=== PATIENT | female | born 1990 | race Caucasian/White ===

== ENCOUNTER → 2016-07-09 | Outpatient (REF) | payer BC | END | disposition home or self-care (01) | LOC: M SFHCPLAZ 15:35 | PROVIDERS: ATTEND Physician Assistant | DX: J02.9 Acute pharyngitis, unspecified (principal) ==

== ENCOUNTER 2016-07-17 10:55 | Emergency (ER) | payer OTHER, BC ==
[2016-07-17] MEDS ORDERED: IBUPROFEN 800 MG TAB As Ordered ONE (14:14)
[2016-07-17] MEDS ORDERED: CEPHALEXIN 250 MG CAP As Ordered ONE (14:14)
--- NOTE | 2016-07-17 14:41 | REP ---
RIGHT HAND SERIES, COMPLETE: 07/17/2016. Clinical history trauma, evaluate for foreign body. Four views were provided. I do not see a radiopaque foreign body embedded in the soft tissues or bones of the right hand and wrist. Distal radius and ulna, carpal bones, metacarpals and phalanges are without fracture, focal lesion or bony erosive change. Joint spaces were preserved and unremarkable. Impression: 1. No radiopaque foreign body or focal bone lesion about the right hand and wrist. Signed by Mauricio Spears MD 07/17/2016 05:59 P
[2016-07-17] MEDS ORDERED: LIDOCAINE 1% MDV 20ML VIAL As Ordered ONE (14:54)
--- NOTE | 2016-07-17 15:51 | EDDOCDS ---
Nurse's Notes [facility] Name: Sindy Arthur Age: 26 yrs Sex: Female : 1990 Arrival Date: 07/17/2016 Time: 10:55 Bed I6 Private MD: Santi Samson M Diagnosis: Laceration without foreign body of right hand;Contusion of right hand Presentation: 07/17 11:05 Presenting complaint: Patient states: "took a nail into hand while pulling a crate down hs1 and crate slammed down on hand" Hand is wrapped at present with gauze - from safety personnel at work. Adult Sepsis Screening: The patient does not have new or worsening altered mentation. Patient's respiratory rate is less than 22. Systolic blood pressure is greater than 100. Patient has a qSOFA score of 0- Negative Sepsis Screen. Suicide/Homicide risk assessment- the patient denies having any suicidal and/or homicidal ideations and does not present with any other emotional, behavioral or mental health complaints. 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 Transition of care: patient was not received from another setting of care. 11:05 Acuity: CECILIA Level 3 hs1 11:05 Method Of Arrival: Walkin/Carried/Asstd hs1 Triage Assessment: 11:07 General: Appears in no apparent distress, Behavior is appropriate for age, cooperative. hs1 Pain: Location: right hand Pain currently is 4 out of 10 on a pain scale. Quality of pain is described as burning, throbbing. HIV screening NA for this visit Offered previously. Respiratory: No deficits noted. Musculoskeletal: Range of motion intact in all extremities. Injury Description: Puncture sustained to dorsum of right hand is was sustained less than 30 minutes ago. 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 none - PMHx: none; - PSHx: Tonsillectomy; Adenoidectomy; Bunion Surgery; - Social history: Smoking status: Patient uses tobacco products, heavy tobacco smoker. No barriers to communication noted, The patient speaks fluent Tajik, Speaks appropriately for age. - Family history: Not pertinent. - : The pt / caregiver states he / she is not on anticoagulants. Home medication list is obtained from the patient. - Exposure Risk Screening:: None identified. Screenin:24 Screening information is obtained from the patient. Fall risk: No risks identified. mcp Assistance ADL's: requires no assistance with activities of daily living. Abuse/DV Screen: The patient / caregiver reports he/she is: not in a situation that causes fear, pain or injury. Nutritional screening: No deficits noted. Advance Directives: There is no active DNR order. home support is adequate. Assessment: 13:39 Reassessment: PATIENT STATES TETANUS IS UP TO DATE. hs1 14:23 General: Appears uncomfortable, Behavior is cooperative. Pain: Location: right hand mcp Pain currently is 5 out of 10 on a pain scale. Neurological: No deficits noted. Respiratory: Airway is patent Respiratory effort is even, unlabored. Derm: Skin is pink, warm & dry. Musculoskeletal: Circulation, motion, and sensation intact. Injury Description: Puncture sustained to dorsum of right hand is superficial. 15:44 General: Appears in no apparent distress, comfortable, Behavior is appropriate for age, kpj pleasant. Pain: Denies pain. Neurological: Level of Consciousness is awake, alert, Oriented to person, place, time. Respiratory: Airway is patent Respiratory effort is even, unlabored, Respiratory pattern is regular, symmetrical. Derm: Skin is pink, warm & dry. Musculoskeletal: Circulation, motion, and sensation intact Capillary refill < 3 seconds in right fingers Range of motion intact in all extremities. Swelling present in dorsum of right hand 3 sutures intact dorsum right hand, no active bleeding noted. slight swelling and redness around suture site. Vital Signs: 10:57 BP 139 / 70; Pulse 76; Resp 16; Temp 97.3(O); Pulse Ox 100% on R/A; Weight 90.72 kg elp (R); Height 5 ft. 7 in. (170.18 cm) (R); Pain 4/10; 15:44 BP 122 / 72; Pulse 84; Resp 16; Temp 98.3(O); Pulse Ox 100% on R/A; Pain 0/10; kpj 10:57 Body Mass Index 31.32 (90.72 kg, 170.18 cm) [facility] Vitals: 10:57 Log In Time: July 17, 2016 at 10:41. [facility] ED Course: 10:56 Patient visited by Chandni Hudson PCA. elp 10:56 Santi Samson is Private Physician. elp 10:56 Patient moved to Waiting elp 10:58 Patient visited by Chandni Hudson PCA. elp 10:58 Patient moved to Pre RCE elp 11:06 Triage Initiated hs1 12:28 [facility] Payment Agreement was scanned into [employer] and attached to record. jp5 12:45 Patient moved to Triage 2 cj 13:31 Madelaine Sweeney PA-C is PHCP. ef1 13:31 Chavez Pandya MD is Attending Physician. ef1 13:32 Patient visited by Madelaine Sweeney PA-C. ef1 14:13 Patient moved to I6 / hs1 14:17 Patient visited by Madelaine Sweeney PA-C. ef1 14:23 Wound care to puncture located on dorsum of right hand was cleaned with Hibiclens, mcp Patient tolerated well. 14:24 The patient / caregiver is instructed regarding the plan of care and ED course. Patient mcp has correct armband on for positive identification. Bed in low position. Call light in reach. 14:24 No IV's were initiated during this patient's visit. mcp 14:25 Patient visited by Doris Ramsey RN. mcp 14:52 Patient visited by Madelaine Sweeney PA-C. ef1 15:13 Santi Samson is Referral Physician. ef1 15:17 Hand, Complete Returned. EDMS 15:30 Assist provider with laceration repair using sutures, Laceration was <2.5 cm. with a kpj simple repair. Performed by Madelaine Sweeney PA-C Dressed with 4X4s, Kerlix, Neosporin and Patient tolerated well. 15:44 No apparent distress. kpj 15:44 Dressings: Kerlix X 1; 4X4s X 1; applied to dorsum of right hand. kpj Administered Medications: 14:22 Drug: Cephalexin 500 mg [cephalexin 250 mg capsule (2 caps)] Route: PO; mcp 14:22 Drug: Ibuprofen 800 mg [ibuprofen 800 mg tablet (1 tabs)] Route: PO; mcp 14:55 CANCELLED (Other Intervention Used): Lidocaine 20 mg/mL (2 %) 10 ml Infiltration once; mcp to bedside 15:30 Drug: Lidocaine 10 ml [lidocaine 10 mg/mL (1 %) injection solution (10 mL)] {Note: kpj given to Elmer VILLAREAL to administer.} Route: Infiltration; 15:43 Drug: Bacitracin 1 applic [bacitracin zinc 500 unit/gram topical ointment (1 applic)] [facility] Route: Topical; Site: affected area; Order Results: Radiology Order: Hand, Complete Test: Hand, Complete REASON FOR EXAMINATION: Foreign Body;Trauma; Right hand series, complete: 07/17/2016.; ; Clinical history trauma, evaluate for foreign body.; ; Four views were provided. I do not see a radiopaque foreign body embedded in the; soft tissues or bones of the right hand and wrist. Distal radius and ulna,; carpal bones, metacarpals and phalanges are without fracture, focal lesion or; bony erosive change. Joint spaces were preserved and unremarkable.; ; Impression:; 1. No radiopaque foreign body or focal bone lesion about the right hand and; wrist.; ; Unreviewed; Outcome: 15:13 Discharge ordered by Provider. ef1 15:49 Discharge Assessment: Patient awake, alert and oriented x 3. No cognitive and/or kpj functional deficits noted. Patient verbalized understanding of disposition instructions. patient administered narcotics - no. The following High Risk Discharge criteria are identified: None. Discharged to home ambulatory. Condition: stable. Discharge instructions given to patient, Instructed on discharge instructions, follow up and referral plans. medication usage, wound care, Demonstrated understanding of instructions, medications, Pt was receptive of discharge instructions/ teaching. Prescriptions given X 2, Work note provided to patient. No special radiology studies were completed. Property sent home with patient. 15:50 Patient left the ED. [facility] Signatures: Dispatcher [employer] EDSC Lashaun Griffith RN RN kpj Peters, Mary, RN RN mcp Feola, Erica, PA-C PAMateus ef1 Bernie Nova RN RN hs1 Coretta Razo RN RN [facility] Chandni Hudson PCA PCA elp Price, Jennalee jp5 Corrections: (The following items were deleted from the chart) 15:49 14:24 No procedures done that require assistance [facility] MTDD
--- NOTE | 2016-07-17 15:51 | EDDOCDS ---
Physician Documentation [facility] Name: Sindy Arthur Age: 26 yrs Sex: Female : 1990 Arrival Date: 07/17/2016 Time: 10:55 Bed I Private MD: Santi Samson M Disposition: 07/17/16 15:13 Discharged to Home/Self Care. Impression: Laceration without foreign body of right hand, Contusion of right hand. - Condition is Stable. - Discharge Instructions: Hand Contusion, Mgyx-ao-Lyel, Sutured Wound Care, [id number]. - Prescriptions for Keflex 500 mg Oral Capsule - take 1 capsule by ORAL route every 12 hours for 10 days; 20 capsule. Mobic 7.5 mg Oral Tablet - take 1 tablet by ORAL route once daily take with food; 20 tablet. - Work Release Form - 4 day, Medication Reconciliation, Local Pharmacy Hours form. - Follow up: Santi Samson; When: 1 - 2 days; Reason: Recheck today's complaints, Continuance of care. Follow up: Emergency Department; Reason: Worsening of conditions. - Problem is new. - Symptoms have improved. Historical: - Allergies: SHELLFISH; Topamaxnumbness of face and lips; - Home Meds: 1. none - PMHx: none; - PSHx: Tonsillectomy; Adenoidectomy; Bunion Surgery; - Social history: Smoking status: Patient uses tobacco products, heavy tobacco smoker. No barriers to communication noted, The patient speaks fluent Cymraes, Speaks appropriately for age. - Family history: Not pertinent. - : The pt / caregiver states he / she is not on anticoagulants. Home medication list is obtained from the patient. - Exposure Risk Screening:: None identified. 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 7 in. (170.18 cm) (R); Pain 4/10; 15:44 BP 122 / 72; Pulse 84; Resp 16; Temp 98.3(O); Pulse Ox 100% on R/A; Pain 0/10; kpj 10:57 Body Mass Index 31.32 (90.72 kg, 170.18 cm) elp Procedures: 14:27 Wound care to laceration located on right hand was cleaned with Hibiclens, irrigated ef1 with normal saline, Patient tolerated well. 15:10 Laceration repair:. ef1 Laceration: 15:10 Wound Repair of 1cm ( 0.4in ) full thickness laceration to right hand. Distal ef1 neuro/vascular/tendon intact. Anesthesia: Local anesthetic administered with 2 mls of 1% lidocaine. Wound prep: Simple cleansing with betadine by provider, Wound irrigation with saline by provider. Skin closed with 3 x 5-0 Nylon using Simple interrupted sutures. Dressed with Bacitracin, 4x4's. Patient tolerated well. MDM: 12:28 [facility] Payment Agreement was scanned into [employer] and attached to record. jp5 13:41 Cephalexin 500 mg PO once ordered. ef1 13:41 Ibuprofen 800 mg PO once ordered. ef1 13:41 Wound Care ordered. ef1 13:41 Hand, Complete Ordered. EDCO 13:50 Financial registration complete. [facility] 14:55 Lidocaine 10 mg/mL (1 %) 10 ml Infiltration once; to bedside ordered. [facility] 15:12 Bacitracin Ointment 500 unit/g 1 applic Topical in affected area once ordered. ef1 15:12 Dressing ordered. ef1 Administered Medications: 14:22 Drug: Cephalexin 500 mg [cephalexin 250 mg capsule (2 caps)] Route: PO; [facility] 14:22 Drug: Ibuprofen 800 mg [ibuprofen 800 mg tablet (1 tabs)] Route: PO; [facility] 14:55 CANCELLED (Other Intervention Used): Lidocaine 20 mg/mL (2 %) 10 ml Infiltration once; [facility] to bedside 15:30 Drug: Lidocaine 10 ml [lidocaine 10 mg/mL (1 %) injection solution (10 mL)] {Note: [facility] given to Elmer VILLAREAL to administer.} Route: Infiltration; 15:43 Drug: Bacitracin 1 applic [bacitracin zinc 500 unit/gram topical ointment (1 applic)] [facility] Route: Topical; Site: affected area; Signatures: Dispatcher [employer] EDCO Lashaun Griffith RN RN Doris Frazier RN RN mcp Feola, Erica, PA-C PA-C ef1 Bernie Nova, RN RN hs1 Chandler Copeland jp5 The chart was reviewed and I authenticate all verbal orders and agree with the evaluation and treatment provided.Corrections: (The following items were deleted from the chart) 14:55 14:53 Lidocaine 20 mg/mL (2 %) 10 ml Infiltration once; to bedside ordered. ef1 [facility] Attachments: 12:28 [facility] Payment Agreement jp5 MTDD
--- NOTE | 2016-07-19 16:51 | EDDOCDS ---
Nurse's Notes [facility] Name: Sindy Arthur Age: 26 yrs Sex: Female : 1990 Arrival Date: 07/17/2016 Time: 10:55 Bed I6 Private MD: Santi Samson M Diagnosis: Laceration without foreign body of right hand;Contusion of right hand Presentation: 07/17 11:05 Presenting complaint: Patient states: "took a nail into hand while pulling a crate down hs1 and crate slammed down on hand" Hand is wrapped at present with gauze - from safety personnel at work. Adult Sepsis Screening: The patient does not have new or worsening altered mentation. Patient's respiratory rate is less than 22. Systolic blood pressure is greater than 100. Patient has a qSOFA score of 0- Negative Sepsis Screen. Suicide/Homicide risk assessment- the patient denies having any suicidal and/or homicidal ideations and does not present with any other emotional, behavioral or mental health complaints. 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 Transition of care: patient was not received from another setting of care. 11:05 Acuity: CECILIA Level 3 hs1 11:05 Method Of Arrival: Walkin/Carried/Asstd hs1 Triage Assessment: 11:07 General: Appears in no apparent distress, Behavior is appropriate for age, cooperative. hs1 Pain: Location: right hand Pain currently is 4 out of 10 on a pain scale. Quality of pain is described as burning, throbbing. HIV screening NA for this visit Offered previously. Respiratory: No deficits noted. Musculoskeletal: Range of motion intact in all extremities. Injury Description: Puncture sustained to dorsum of right hand is was sustained less than 30 minutes ago. EEG TECH: 11:08 LMP 06/20/2016 hs1 Historical: - Allergies: SHELLFISH; Topamaxnumbness of face and lips; - Home Meds: 1. none - PMHx: none; - PSHx: Tonsillectomy; Adenoidectomy; Bunion Surgery; - Social history: Smoking status: Patient uses tobacco products, heavy tobacco smoker. No barriers to communication noted, The patient speaks fluent Lithuanian, Speaks appropriately for age. - Family history: Not pertinent. - : The pt / caregiver states he / she is not on anticoagulants. Home medication list is obtained from the patient. - Exposure Risk Screening:: None identified. Screenin:24 Screening information is obtained from the patient. Fall risk: No risks identified. mcp Assistance ADL's: requires no assistance with activities of daily living. Abuse/DV Screen: The patient / caregiver reports he/she is: not in a situation that causes fear, pain or injury. Nutritional screening: No deficits noted. Advance Directives: There is no active DNR order. home support is adequate. Assessment: 13:39 Reassessment: PATIENT STATES TETANUS IS UP TO DATE. hs1 14:23 General: Appears uncomfortable, Behavior is cooperative. Pain: Location: right hand mcp Pain currently is 5 out of 10 on a pain scale. Neurological: No deficits noted. Respiratory: Airway is patent Respiratory effort is even, unlabored. Derm: Skin is pink, warm & dry. Musculoskeletal: Circulation, motion, and sensation intact. Injury Description: Puncture sustained to dorsum of right hand is superficial. 15:44 General: Appears in no apparent distress, comfortable, Behavior is appropriate for age, kpj pleasant. Pain: Denies pain. Neurological: Level of Consciousness is awake, alert, Oriented to person, place, time. Respiratory: Airway is patent Respiratory effort is even, unlabored, Respiratory pattern is regular, symmetrical. Derm: Skin is pink, warm & dry. Musculoskeletal: Circulation, motion, and sensation intact Capillary refill < 3 seconds in right fingers Range of motion intact in all extremities. Swelling present in dorsum of right hand 3 sutures intact dorsum right hand, no active bleeding noted. slight swelling and redness around suture site. Vital Signs: 10:57 BP 139 / 70; Pulse 76; Resp 16; Temp 97.3(O); Pulse Ox 100% on R/A; Weight 90.72 kg elp (R); Height 5 ft. 7 in. (170.18 cm) (R); Pain 4/10; 15:44 BP 122 / 72; Pulse 84; Resp 16; Temp 98.3(O); Pulse Ox 100% on R/A; Pain 0/10; kpj 10:57 Body Mass Index 31.32 (90.72 kg, 170.18 cm) [facility] Vitals: 10:57 Log In Time: July 17, 2016 at 10:41. [facility] ED Course: 10:56 Patient visited by Chandni Hudson PCA. elp 10:56 Santi Samson is Private Physician. elp 10:56 Patient moved to Waiting elp 10:58 Patient visited by Chandni Hudson PCA. elp 10:58 Patient moved to Pre RCE elp 11:06 Triage Initiated hs1 12:28 [facility] Payment Agreement was scanned into [employer] and attached to record. jp5 12:45 Patient moved to Triage 2 cjh 13:31 Madelaine Sweeney PA-C is PHCP. ef1 13:31 Chavez Pandya MD is Attending Physician. ef1 13:32 Patient visited by Madelaine Sweeney PA-C. ef1 14:13 Patient moved to I6 / hs1 14:17 Patient visited by Madelaine Sweeney PA-C. ef1 14:23 Wound care to puncture located on dorsum of right hand was cleaned with Hibiclens, mcp Patient tolerated well. 14:24 The patient / caregiver is instructed regarding the plan of care and ED course. Patient mcp has correct armband on for positive identification. Bed in low position. Call light in reach. 14:24 No IV's were initiated during this patient's visit. mcp 14:25 Patient visited by Doris Ramsey RN. mcp 14:52 Patient visited by Madelaine Sweeney PA-C. ef1 15:13 Santi Samson is Referral Physician. ef1 15:17 Hand, Complete Returned. EDMS 15:30 Assist provider with laceration repair using sutures, Laceration was <2.5 cm. with a kpj simple repair. Performed by Madelaine Sweeney PA-C Dressed with 4X4s, Kerlix, Neosporin and Patient tolerated well. 15:44 No apparent distress. kpj 15:44 Dressings: Kerlix X 1; 4X4s X 1; applied to dorsum of right hand. kpj 16:18 T-Sheet-- Draft Copy was scanned into [employer] and attached to record. klr 07/18 10:09 Radiology Report was scanned into [employer] and attached to record. gb Administered Medications: 07/17 14:22 Drug: Cephalexin 500 mg [cephalexin 250 mg capsule (2 caps)] Route: PO; mcp 14:22 Drug: Ibuprofen 800 mg [ibuprofen 800 mg tablet (1 tabs)] Route: PO; [facility] 14:55 CANCELLED (Other Intervention Used): Lidocaine 20 mg/mL (2 %) 10 ml Infiltration once; mcp to bedside 15:30 Drug: Lidocaine 10 ml [lidocaine 10 mg/mL (1 %) injection solution (10 mL)] {Note: kpj given to Elmer velásquez administer.} Route: Infiltration; 15:43 Drug: Bacitracin 1 applic [bacitracin zinc 500 unit/gram topical ointment (1 applic)] [facility] Route: Topical; Site: affected area; Order Results: Radiology Order: Hand, Complete Test: Hand, Complete REASON FOR EXAMINATION: Foreign Body;Trauma; RIGHT HAND SERIES, COMPLETE: 07/17/2016.; ; Clinical history trauma, evaluate for foreign body.; ; Four views were provided. I do not see a radiopaque foreign body embedded in the; soft tissues or bones of the right hand and wrist. Distal radius and ulna,; carpal bones, metacarpals and phalanges are without fracture, focal lesion or; bony erosive change. Joint spaces were preserved and unremarkable.; ; Impression:; ; 1. No radiopaque foreign body or focal bone lesion about the right hand and; wrist.; ; ; Signed by; Mauricio Spears MD 07/17/2016 05:59 P; Outcome: 15:13 Discharge ordered by Provider. ef1 15:49 Discharge Assessment: Patient awake, alert and oriented x 3. No cognitive and/or kpj functional deficits noted. Patient verbalized understanding of disposition instructions. patient administered narcotics - no. The following High Risk Discharge criteria are identified: None. Discharged to home ambulatory. Condition: stable. Discharge instructions given to patient, Instructed on discharge instructions, follow up and referral plans. medication usage, wound care, Demonstrated understanding of instructions, medications, Pt was receptive of discharge instructions/ teaching. Prescriptions given X 2, Work note provided to patient. No special radiology studies were completed. Property sent home with patient. 15:50 Patient left the ED. [facility] Signatures: Dispatcher [employer] Lashaun Gifford RN RN kpj Peters, Mary, RN RN [facility] Lidia Rolon, Madelaine Retana, KELLI PA-C ef1 Bernie Nova RN RN hs1 Coretta RazoRN RN cjh Chandni Hudson, CHEL ANIMAL BREEDER federicap Chandler Copeland jp5 Akua Mckenzie Corrections: (The following items were deleted from the chart) 15:49 14:24 No procedures done that require assistance eri gonzalez Chart Complete MTDD
--- NOTE | 2016-07-19 16:51 | EDDOCDS ---
Physician Documentation [facility] Name: Sindy Arthur Age: 26 yrs Sex: Female : 1990 Arrival Date: 07/17/2016 Time: 10:55 Bed I Private MD: Santi Samson M Disposition: 07/17/16 15:13 Discharged to Home/Self Care. Impression: Laceration without foreign body of right hand, Contusion of right hand. - Condition is Stable. - Discharge Instructions: Hand Contusion, [id number], Sutured Wound Care, [id number]. - Prescriptions for Keflex 500 mg Oral Capsule - take 1 capsule by ORAL route every 12 hours for 10 days; 20 capsule. Mobic 7.5 mg Oral Tablet - take 1 tablet by ORAL route once daily take with food; 20 tablet. - Work Release Form - 4 day, Medication Reconciliation, Local Pharmacy Hours form. - Follow up: Santi Samson; When: 1 - 2 days; Reason: Recheck today's complaints, Continuance of care. Follow up: Emergency Department; Reason: Worsening of conditions. - Problem is new. - Symptoms have improved. Historical: - Allergies: SHELLFISH; Topamaxnumbness of face and lips; - Home Meds: 1. none - PMHx: none; - PSHx: Tonsillectomy; Adenoidectomy; Bunion Surgery; - Social history: Smoking status: Patient uses tobacco products, heavy tobacco smoker. No barriers to communication noted, The patient speaks fluent Greek, Speaks appropriately for age. - Family history: Not pertinent. - : The pt / caregiver states he / she is not on anticoagulants. Home medication list is obtained from the patient. - Exposure Risk Screening:: None identified. 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 7 in. (170.18 cm) (R); Pain 4/10; 15:44 BP 122 / 72; Pulse 84; Resp 16; Temp 98.3(O); Pulse Ox 100% on R/A; Pain 0/10; kpj 10:57 Body Mass Index 31.32 (90.72 kg, 170.18 cm) elp Procedures: 14:27 Wound care to laceration located on right hand was cleaned with Hibiclens, irrigated ef1 with normal saline, Patient tolerated well. 15:10 Laceration repair:. ef1 Laceration: 15:10 Wound Repair of 1cm ( 0.4in ) full thickness laceration to right hand. Distal ef1 neuro/vascular/tendon intact. Anesthesia: Local anesthetic administered with 2 mls of 1% lidocaine. Wound prep: Simple cleansing with betadine by provider, Wound irrigation with saline by provider. Skin closed with 3 x 5-0 Nylon using Simple interrupted sutures. Dressed with Bacitracin, 4x4's. Patient tolerated well. MDM: 12:28 [facility] [place], [place] Payment Agreement was scanned into smartclip and attached to record. jp5 13:41 Cephalexin 500 mg PO once ordered. ef1 13:41 Ibuprofen 800 mg PO once ordered. ef1 13:41 Wound Care ordered. ef1 13:41 Hand, Complete Ordered. EDMS 13:50 Financial registration complete. jp5 14:55 Lidocaine 10 mg/mL (1 %) 10 ml Infiltration once; to bedside ordered. mcp 15:12 Bacitracin Ointment 500 unit/g 1 applic Topical in affected area once ordered. ef1 15:12 Dressing ordered. ef1 16:18 T-Sheet-- Draft Copy was scanned into smartclip and attached to record. klr 07/18 10:09 Radiology Report was scanned into smartclip and attached to record. gb Administered Medications: 07/17 14:22 Drug: Cephalexin 500 mg [cephalexin 250 mg capsule (2 caps)] Route: PO; mcp 14:22 Drug: Ibuprofen 800 mg [ibuprofen 800 mg tablet (1 tabs)] Route: PO; mcp 14:55 CANCELLED (Other Intervention Used): Lidocaine 20 mg/mL (2 %) 10 ml Infiltration once; mcp to bedside 15:30 Drug: Lidocaine 10 ml [lidocaine 10 mg/mL (1 %) injection solution (10 mL)] {Note: kpj given to Elmer VILLAREAL to administer.} Route: Infiltration; 15:43 Drug: Bacitracin 1 applic [bacitracin zinc 500 unit/gram topical ointment (1 applic)] kpj Route: Topical; Site: affected area; Signatures: Dispatcher [employer] Lashaun Gifford RN RN kpj Peters, Mary, RN RN Lidia Hoover, Madelaine Retana, PA-C PA-C ef1 Bernie Nova RN RN hs1 Min Chandler jp5 Akua Mckenzie The chart was reviewed and I authenticate all verbal orders and agree with the evaluation and treatment provided.Corrections: (The following items were deleted from the chart) 14:55 14:53 Lidocaine 20 mg/mL (2 %) 10 ml Infiltration once; to bedside ordered. ef1 eri Attachments: 12:28 [facility] [place] [place] Payment Agreement jp5 16:18 T-Sheet-- Draft Copy klr Chart Complete MTDJaswinder
--- NOTE | 2016-07-19 16:51 | EDDOCDS ---
Physician Documentation [facility] Name: Sindy Arthur Age: 26 yrs Sex: Female : 1990 Arrival Date: 07/17/2016 Time: 10:55 Bed I Private MD: Santi Samson M Disposition: 07/17/16 15:13 Discharged to Home/Self Care. Impression: Laceration without foreign body of right hand, Contusion of right hand. - Condition is Stable. - Discharge Instructions: Hand Contusion, [id number], Sutured Wound Care, [id number]. - Prescriptions for Keflex 500 mg Oral Capsule - take 1 capsule by ORAL route every 12 hours for 10 days; 20 capsule. Mobic 7.5 mg Oral Tablet - take 1 tablet by ORAL route once daily take with food; 20 tablet. - Work Release Form - 4 day, Medication Reconciliation, Local Pharmacy Hours form. - Follow up: Santi Samson; When: 1 - 2 days; Reason: Recheck today's complaints, Continuance of care. Follow up: Emergency Department; Reason: Worsening of conditions. - Problem is new. - Symptoms have improved. Historical: - Allergies: SHELLFISH; Topamaxnumbness of face and lips; - Home Meds: 1. none - PMHx: none; - PSHx: Tonsillectomy; Adenoidectomy; Bunion Surgery; - Social history: Smoking status: Patient uses tobacco products, heavy tobacco smoker. No barriers to communication noted, The patient speaks fluent Cambodian, Speaks appropriately for age. - Family history: Not pertinent. - : The pt / caregiver states he / she is not on anticoagulants. Home medication list is obtained from the patient. - Exposure Risk Screening:: None identified. 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 7 in. (170.18 cm) (R); Pain 4/10; 15:44 BP 122 / 72; Pulse 84; Resp 16; Temp 98.3(O); Pulse Ox 100% on R/A; Pain 0/10; kpj 10:57 Body Mass Index 31.32 (90.72 kg, 170.18 cm) elp Procedures: 14:27 Wound care to laceration located on right hand was cleaned with Hibiclens, irrigated ef1 with normal saline, Patient tolerated well. 15:10 Laceration repair:. ef1 Laceration: 15:10 Wound Repair of 1cm ( 0.4in ) full thickness laceration to right hand. Distal ef1 neuro/vascular/tendon intact. Anesthesia: Local anesthetic administered with 2 mls of 1% lidocaine. Wound prep: Simple cleansing with betadine by provider, Wound irrigation with saline by provider. Skin closed with 3 x 5-0 Nylon using Simple interrupted sutures. Dressed with Bacitracin, 4x4's. Patient tolerated well. MDM: 12:28 [facility] [place] Payment Agreement was scanned into [employer] and attached to record. jp5 13:41 Cephalexin 500 mg PO once ordered. ef1 13:41 Ibuprofen 800 mg PO once ordered. ef1 13:41 Wound Care ordered. ef1 13:41 Hand, Complete Ordered. EDMS 13:50 Financial registration complete. jp5 14:55 Lidocaine 10 mg/mL (1 %) 10 ml Infiltration once; to bedside ordered. mcp 15:12 Bacitracin Ointment 500 unit/g 1 applic Topical in affected area once ordered. ef1 15:12 Dressing ordered. ef1 16:18 T-Sheet-- Draft Copy was scanned into [employer] and attached to record. klr 07/18 10:09 Radiology Report was scanned into [employer] and attached to record. gb Administered Medications: 07/17 14:22 Drug: Cephalexin 500 mg [cephalexin 250 mg capsule (2 caps)] Route: PO; mcp 14:22 Drug: Ibuprofen 800 mg [ibuprofen 800 mg tablet (1 tabs)] Route: PO; mcp 14:55 CANCELLED (Other Intervention Used): Lidocaine 20 mg/mL (2 %) 10 ml Infiltration once; mcp to bedside 15:30 Drug: Lidocaine 10 ml [lidocaine 10 mg/mL (1 %) injection solution (10 mL)] {Note: kpj given to Elmer VILLAREAL to administer.} Route: Infiltration; 15:43 Drug: Bacitracin 1 applic [bacitracin zinc 500 unit/gram topical ointment (1 applic)] kpj Route: Topical; Site: affected area; Signatures: Dispatcher [employer] Lashaun Gifford RN RN kpj Peters, Mary, RN RN Lidia Hoover, Madelaine Retana, PA-C PA-C ef1 Bernie Nova RN RN hs1 Min Chandler jp5 Akua Mckenzie The chart was reviewed and I authenticate all verbal orders and agree with the evaluation and treatment provided.Corrections: (The following items were deleted from the chart) 14:55 14:53 Lidocaine 20 mg/mL (2 %) 10 ml Infiltration once; to bedside ordered. ef1 eri Attachments: 12:28 [facility] [place] Payment Agreement jp5 16:18 T-Sheet-- Draft Copy klr Chart Complete MTDJaswinder
== END 2016-07-17 15:50 | disposition home or self-care (01) ==
LOC: M ED 10:55
DX: S61.411A Laceration without foreign body of right hand, initial encounter (principal); S60.221A Contusion of right hand, initial encounter; W45.8XXA Other foreign body or object entering through skin, initial encounter; Y92.89 Other specified places as the place of occurrence of the external cause; Y93.89 Activity, other specified; Y99.0 Civilian activity done for income or pay; F17.210 Nicotine dependence, cigarettes, uncomplicated; Z91.013 Allergy to seafood; Z88.8 Allergy status to other drugs, medicaments and biological substances

== ENCOUNTER → 2016-12-05 | Outpatient (CLI) | payer BC ==
--- NOTE | 2016-12-06 01:44 | REP ---
Clinical: Pain. Technique: AP, lateral, bilateral oblique views right hand . Findings: The osseous structures and joint spaces are intact and normal. There is no evidence for acute fracture or dislocation. Surrounding soft tissues are unremarkable. No subcutaneous emphysema or radiodense foreign body. Impression: Normal examination. No acute fracture or dislocation. Signed by Ron Cooper MD 12/06/2016 01:36 A
--- NOTE | 2016-12-06 01:57 | REP ---
Clinical: Pain. Technique: AP, lateral, bilateral oblique views right wrist . Findings: The carpal bones, surrounding osseous structures, soft tissues, and joint spaces are normal. There is no evidence for acute fracture or dislocation. No subcutaneous emphysema or radiodense foreign body. Impression: Normal right wrist series. No acute fracture or dislocation Signed by Ron Cooper MD 12/06/2016 01:49 A
== END ==
LOC: M RAD 13:34
PROVIDERS: ATTEND Physician Assistant
DX: M79.641 Pain in right hand (principal)

== ENCOUNTER → 2020-05-23 | Outpatient (CLI) | payer SELFPAY | LOC: M LABSMTC 17:37 | PROVIDERS: ATTEND Pediatrics | DX: Z20.828 Contact with and (suspected) exposure to other viral communicable diseases (principal) ==